=== PATIENT | male | born 1930 | race African-American/Black ===

== ENCOUNTER 2016-11-20 16:30 | Inpatient (IN) | payer MEDICARE, OTHER ==
[~2016-11-20] VITALS: Ht 167.6 cm; Wt 70.0 kg
--- NOTE | ~2016-11-20 | EKG ---
PATIENT: SANDIE MONTALVO UNIT #: [id number] Ventricular Rate: 122 BPM Atrial Rate: 122 BPM P-R Interval: 144 ms QRS Duration: 68 ms Q-T Interval: 300 ms QTC Calculation(Bezet): 427 ms P [place]: 53 degrees Calculated R [place]: 34 degrees Calculated T [place]: 33 degrees Diagnosis Line: Sinus tachycardia Diagnosis Line: Otherwise normal ECG Diagnosis Line: No previous ECGs available Diagnosis Line: Confirmed by YAMILKA BOYD MD ([id number]) on Diagnosis Line: 11/21/2016 5:02:48 PM INTERPRETING MD: ELIJAH
--- NOTE | ~2016-11-20 | CO ---
Unit #: [id number] #: [id number] Patient: SANDIE MONTALVO [id number] [address] [place], [place] [address] [id number] I MR#: [id number] NAME: SANDIE MONTALVO ROOM: 562 Age: 86 Sex: M Admission Date: 11/20/2016 : 1930 Attending Physician: Lakeisha Martines M.D. Primary Care Physician: Tc Crystal M.D. Consultation Date: 11/21/2016 CONSULTATION REPORT REASON FOR EVAL Anemia and lymphoma, please evaluate. HISTORY OF PRESENT ILLNESS 86-year-old gentleman who is a very good historian. 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 He was treated with chemotherapy followed by radiation therapy followed by maintenance therapy until about a few weeks ago when he was found to have a lung mass and possible kidney mass. He underwent biopsy of the lung mass and pathology is pending. He was supposed to go and see Dr. Alberto Hdz in the [facility] but presented to this hospital with symptomatic severe anemia. He is being transfused and has his and brother in the room with him. Today, he states that he is feeling overall much improved since coming in the hospital. PAST HISTORY Very complex, well documented. Mainly history of lymphoma, treated with chemoradiation therapy. All those records are not available to use. FAMILY HISTORY Negative for cluster of lymphomas. SOCIAL HISTORY Patient is , retired. Nonsmoker, no alcohol usage. ALLERGIES He is allergic to Cipro and amoxicillin. CHRONIC MEDICATIONS Include: 1. Rocephin. 2. Motrin. 3. IV fluids. 4. Tylenol. REVIEW OF SYSTEMS Mainly remarkable for generalized weakness. Decreased appetite for the last couple of days. No chest pain, no increasing shortness of breath. Otherwise, six or eight systems were within normal limits. PHYSICAL EXAMINATION GENERAL: On exam, he looks stated age, very awake, alert, oriented. Very pleasant. No palpable nodes. LUNGS: Crackles. No rales. Unit #: [id number] #: [id number] Patient: SANDIE MONTALVO CARDIOVASCULAR: Distant S1, S2. ABDOMEN: No organomegaly. [employer] SAL[employer] REPRESENTATIVE: Grossly intact. RECTAL: Not done. DIAGNOSTIC STUDIES LABORATORY: CBC - hemoglobin 6, hematocrit 17.8, white count 12.7, platelets 392,000. Sodium 137, potassium 3.9, chloride 108, CO2 21, glucose 96, BUN 15, creatinine 0.8. IMAGING: CT scan of the chest was reviewed and it does show right lower lobe mass lesion with multiple liver metastases and possible lung metastases. IMPRESSION This is an 86-year-old gentleman with a new diagnosis of right lower lobe mass lesion with evidence of liver metastases, had biopsy done in [facility] two days ago and the result is pending. Currently, presents with symptomatic anemia. PLAN We agree with packed RBC and aggressive support. The patient and the family desire to go back to the [facility] as soon as possible. So, upon discharge, he will be going back to Dr. Hdz in the [facility]. Thank you for allowing us to participate in his care. Dictated by... Adán Cisse/bill TD: 11/21/2016 13:18 JOB #: [id number] CONSULTATION REPORT Page 1 of 1 X Hugo Niño MD X CONSULTATION REPORT
--- NOTE | ~2016-11-20 | DS ---
Unit #: [id number] #: [id number] Patient: SANDIE MONTALVO [id number] [address] [address] [id number] I MR#: [id number] NAME: SANDIE MONTALVO ROOM: 562 Age: 86 Sex: M Admission Date: 11/20/2016 : 1930 Discharge Date: Attending Physician: Junior Woods M.D. Primary Care Physician: No Primary Care Physician DISCHARGE SUMMARY DISCHARGE DIAGNOSES 1. Septic shock present on admission. 2. Sepsis. 3. Fever, etiology unclear, likely from his lymphoma, no source of infection. 4. Anemia, likely from his non-Hodgkin's lymphoma. 5. History of ulcerative colitis. 6. Prostate cancer. 7. Recent history of right lung biopsy two days ago. Patient is following [facility] Oncologist. 8. Hypercalcemia. 9. Metabolic acidosis. 10. Hypophosphatemia. 11. Severe protein malnutrition. 12. Transaminitis. CONSULTATION Dr. Niño. PROCEDURE None. DIAGNOSTIC STUDIES LABORATORY: Sodium 138, potassium 4, creatinine 0.7. AST 127, ALT 42, alkaline phosphatase 287. Albumin 1.7. WBC 13.8, hemoglobin 8, platelets 419,000. Blood cultures negative. Urinalysis shows no infection. Influenza A and B negative. IMAGING: CT of the chest without contrast shows irregular spiculated mass right lower lobe, probable right hilar adenopathy concerning for metastatic disease to the sternum and T10 vertebral body also, probable extensive metastatic disease throughout the liver present. Also, several bilateral pulmonary nodules present due to metastatic disease. Small right pleural effusion present. ALLERGIES Ciprofloxacin and amoxicillin. DISCHARGE MEDICATIONS 1. Albuterol two puffs inhalation q.6. 2. Flomax 0.4 p.o. daily. 3. Omeprazole 40 mg p.o. daily. HOSPITALIZATION COURSE Unit #: [id number] #: [id number] Patient: SANDIE MONTALVO An 86 year old admitted because of generalized weakness. When he came in, patient found to have fever and low blood pressures. Patient was diagnosed with septic shock and sepsis and broad-spectrum antibiotics including IV vancomycin and cefepime has been started, but patient does not have any signs of infection. His urinalysis is negative. Chest x-ray negative. No open wounds. No diarrhea. Blood cultures negative. He does have fever x2 only. According to Dr. Niño (oncologist), the fever might be from his lymphoma. Because we could not find any signs of infection, I am going to discontinue the antibiotics and tell him to continue following with his PCP. History of non-Hodgkin's lymphoma: Currently with lung nodule and severe metastatic disease. Patient does not want our oncologist to treat him. He wants to follow Dr. Hdz at [facility]. History of ulcerative colitis: Continue with omeprazole. DISPOSITION Discharge home. FOLLOWUP 1. Follow with his oncologist in one week time for Hodgkin's lymphoma and the lung nodules, likely metastatic disease. 2. Follow with PCP in one week time. 3. Patient will have home health. Dictated by... Adán Johnson TD: 11/23/2016 15:01 JOB #: [id number] DISCHARGE SUMMARY Page 1 of 1 X Lakeisha Martines MD X DISCHARGE SUMMARY
--- NOTE | ~2016-11-20 | CR72 ---
[facility] A Service of [facility] & [facility] RADIOLOGY TEXT RESULTS PATIENT: SADNIE MONTALVO LOCATION: [facility] 562-01 : 31 UNIT #: [id number] AGE: [address]: Lakeisha Martines MD SEX: M ORDER DR: [id number] [facility] [address] [facility]. [place], [place] [address] [id number] I MR#: [id number] Acc #: [id number] NAME: SANDIE MONTALVO : 1930 SEX: M STUDY DATE/TIME: 11/20/2016 17:25 UNIT: [facility] ROOM: [facility] STUDY DESCRIPTION: CR Chest Single View Portable Attending Physician: Lakeisha Martines M.D. Ordering Physician: Ok Haynes M.D. Primary Care Physician: No Primary Care Physician MEDICAL IMAGING REPORT This report is preliminary unless electronic signature is present EXAM Portable chest 11/20/2016. HISTORY 86-year-old male with fever and shortness of air for 3 days. COMPARISON Chest 04/05/2007. FINDINGS Frontal chest demonstrates clear lungs. No pleural effusion or pneumothorax. Heart size and mediastinum are normal. Pulmonary vasculature unremarkable. Right-sided Port-A-Cath. IMPRESSION No acute cardiopulmonary findings. Dictated by... Jeremie Vaz M.D. THIS IS AN ELECTRONICALLY VERIFIED REPORT Jeremie Vaz M.D. at 11/21/2016 10:43 AM GIUSEPPE/mak TD: 11/21/2016 09:42 JOB #: [id number] MEDICAL IMAGING REPORT Page 1 of 1 COPY
--- NOTE | ~2016-11-20 | HP ---
Unit #: [id number] #: [id number] Patient: SANDIE MONTALVO [id number] [address] [address] [id number] I MR#: [id number] NAME: SANDIE MONTALVO ROOM: 562 Age: 86 Sex: M Admission Date: 11/20/2016 : 1930 Attending Physician: Elizabeth Crystal M.D. Primary Care Physician: No Primary Care Physician HISTORY AND PHYSICAL REVISED REPORT CHIEF COMPLAINT Weakness. HISTORY OF PRESENT ILLNESS The patient is an 86-year-old male with a history of an ulcerative colitis and prostate cancer and then non-Hodgkin's lymphoma, status post chemo and radiation, presented to the emergency department complaining of the weakness. The patient was diagnosed with spots on the lungs and the kidneys and underwent a biopsy of the lung biopsy last week on Monday. The patient stated the patient was having no energy, associated fever of 101.2 and no appetite. The patient follows with oncology with Dr. Horta at [facility] and was scheduled to follow up with him tomorrow for the treatment plan. The patient stated that the patient had shortness of breath and has a remote history of smoking and quite smoking 25 years ago. Denies any chest pain. Denies any nausea and vomiting. PAST MEDICAL HISTORY History of ulcerative colitis, prostate cancer, non-Hodgkin's lymphoma. PAST SURGICAL HISTORY History of a prostate seed implant. HOME MEDICATIONS Patient is on omeprazole and iron. ALLERGIES Patient is allergic to Cipro and amoxicillin that causes rash. FAMILY HISTORY No history of cancer in the family. REVIEW OF SYMPTOMS The patient complains of feeling weak. No energy. Loss of appetite. Denies any shortness of breath. Denies any chest pain. Denies any nausea and vomiting. All other systems have been reviewed and are none. PHYSICAL EXAMINATION GENERAL: The patient is lying on the bed, not in acute distress. VITAL SIGNS: Temperature 101.2, pulse 132, respirations 16, blood pressure 116/70, satting 99% on room air. HEENT: Head atraumatic and normocephalic. Pupils equal, round, reactive Unit #: [id number] #: [id number] Patient: SANDIE MONTALVO to light and accommodation. Extraocular movements are intact. Positive for pallor. Positive for dry mucous membrane. NECK: Supple. LUNGS: Decreased air entry at the basis, status post lung biopsy Monday. ABDOMEN: Soft, distended, positive bowel sounds, no tenderness. EXTREMITIES: Positive for edema. No cyanosis. No clubbing. NEUROLOGIC: Alert, awake and oriented. No gross focal motor deficit. DIAGNOSTIC STUDIES LABORATORY DATA: Troponin less than 0.05, INR 1.3. Sodium 136, potassium 4.3, chloride 103, bicarb 23, glucose 123, BUN 17, creatinine 0.9, AST 165, ALT 53, alk phos 353, total bilirubin 1.6. Lipase 27, amylase 47, magnesium is 2, albumin 2.3, phosphorus 1.9. Lactic acid is 3.1. Previously WBC is 15.7, hemoglobin 8.3, hematocrit 25.1, platelets 516. Bands 8%, neutrophils 78%. Influenza A and B is negative. UA shows trace protein. IMAGING STUDIES: Chest x-ray - no acute cardiopulmonary process. CARDIOLOGY STUDIES: EKG shows sinus tachycardia. Otherwise normal EKG. ASSESSMENT 1. Sepsis. 2. Anemia in a compromised patient. 3. Probable mets to the liver/kidney and history of non-Hodgkin's lymphoma. 4. History of right lung biopsy two days ago on Monday. PLAN Plan to admit the patient to the inpatient telemetry and continue with the sepsis protocol and antibiotics with Maxipime 1 gram q12 and oncology consult for probable mets to the lungs. Will check the CT of the chest without contrast, rule out obstructive pneumonia with a hemothorax and repeat the CBC and BMP in the morning and obtain the old records from [facility]. Patient is a full code at this time and further recommendations will follow. Dictated by Adán Vieira TD: 11/21/2016 05:19 JOB #: [id number] HISTORY AND PHYSICAL Page 1 of 1 X ELIZABETH CRYSTAL MD X HISTORY AND PHYSICAL
--- NOTE | ~2016-11-20 | CT57 ---
[facility] A Service of [facility] & [facility] RADIOLOGY TEXT RESULTS PATIENT: SANDIE MONTALVO LOCATION: [facility] 562-01 : 31 UNIT #: [id number] AGE: [address]: Junior Woods MD SEX: M ORDER DR: [id number] [facility] [address] [facility]. [place], [place] [address] [id number] I MR#: [id number] Acc #: [id number] NAME: SANDIE MONTALVO : 1930 SEX: M STUDY DATE/TIME: 11/21/2016 0:13 UNIT: [facility] ROOM: [facility] STUDY DESCRIPTION: CT Chest Wo Cont Attending Physician: Lakeisha Martines M.D. Ordering Physician: Sriram Gibson M.D. Primary Care Physician: No Primary Care Physician MEDICAL IMAGING REPORT This report is preliminary unless electronic signature is present EXAM CT chest without contrast. HISTORY Shortness of air and cough and chest pain for [address] exam was performed with one or more of the following radiation dose reduction techniques: automatic exposure control, adjustment of mA and/or kV according to patient size, and iterative reconstruction. FINDINGS CT chest without contrast demonstrates a lobulated, irregularly marginated mass in the superior segment right lower lobe, measuring 4.7 cm x 6.5 cm in AP and transverse dimensions and 4.8 cm in craniocaudal dimension, concerning for lung carcinoma. Probable right hilar adenopathy. Small right pleural effusion, and mild atelectasis in the posterior lower lobes. Mild nodularity in the anterior left upper lobe, and in the right middle lobe, measuring up to approximately 1 cm. 2.6 cm destructive lesion in the upper sternum, and 1.1 cm lytic lesion in the left margin of the T10 vertebral body. Extensive hypodense hepatic lesions throughout the entire visualized liver. Findings are concerning for hepatic metastatic disease. IMPRESSION 1. Irregularly marginated suspicious mass in the superior segment right lower lobe is characteristic of lung carcinoma. Probable right hilar adenopathy. Findings are also concerning for metastatic disease to the sternum and T10 vertebral body and probable extensive metastatic disease throughout the liver. There are also several small bilateral pulmonary nodules. Although nonspecific, these could be due to metastatic disease as well. 2. Small right pleural effusion. [facility]. [facility] A Service of [facility] RADIOLOGY TEXT RESULTS PATIENT: SANDIE MONTALVO LOCATION: [facility] 562-01 : 31 UNIT #: [id number] AGE: [address]: Junior Woods MD SEX: M ORDER DR: Dictated by... Leroy Lima M.D. THIS IS AN ELECTRONICALLY VERIFIED REPORT Leroy Lima M.D. at 11/21/2016 10:31 PM DFL/mak TD: 11/21/2016 12:25 JOB #: [id number] MEDICAL IMAGING REPORT Page 1 of 1 COPY
[~2016-11-20 16:30] MED LIST: LORTAB 5/500 TA1 TA1 PO
[2016-11-20 17:48] LABS: POC - CKMB 2.7 ng/mL (0.0-7.9); POC - TROPONIN <0.05 ng/mL (<=0.05)
[2016-11-20 18:11] LABS: BASOPHIL% 0.3 % (0-2.5); EOSINOPHIL% 0.2 % (0.0-7.0); HEMATOCRIT 25.1 % (38.0-50.0); HEMOGLOBIN 8.3 gm/dL (13.0-16.0); LYMPHOCYTE# 0.3 X10e3 (1.0-3.5); LYMPHOCYTE% 2.2 % (17.0-45.0); MEAN CELL VOLUME 81.5 FL (83-96); MEAN CORPUSCULAR HGB CONC 33.1 g/dL (30-36); MEAN PLATELET VOLUME 7.2 FL (6.5-11.5); MONOCYTE# 1.7 X10e3 (0-1.0); MONOCYTE% 10.5 % (3.0-12.0); NEUTROPHIL# 13.6 X10e3 (1.5-7.1); NEUTROPHIL% 86.8 % (40-75); PLATELET COUNT 516 X10e3 (140-420); RED BLOOD COUNT 3.08 X10e (3.90-5.60); RED CELL DISTRIBUTION WIDTH 21.2 % (11.0-15.5); WHITE BLOOD COUNT 15.7 X10e3 (4.0-10.5)
[2016-11-20 18:13] LABS: DIFF IND YES
[2016-11-20 18:19] LABS: INR 1.3; PARTIAL THROMBOPLASTIN TIME 26.4 SECONDS (23.5-31.3); PROTHROMBIN TIME (PATIENT) 13.6 SECONDS (10.0-11.7)
[2016-11-20 18:25] LABS: ALBUMIN SERUM 2.3 g/dL (3.5-5.0); BILIRUBIN, DIRECT 0.8 mg/dL (0.0-0.2); BILIRUBIN,INDIRECT 0.8 mg/dL (0.0-0.9); BILIRUBIN,TOTAL 1.6 mg/dL (0.2-2.0); BUN/CREATININE RATIO 18.88; CALCIUM SERUM 8.9 mg/dL (8.4-10.2); CREATININE SERUM 0.9 mg/dL (0.6-1.4); GLOM FILT RATE Estimated 89.9 mL/min (>60); PHOSPHOROUS 1.9 mg/dL (2.5-4.6); POTASSIUM 4.3 mmol/L (3.5-5.1); PROTEIN TOTAL SERUM 6.2 g/dL (6.0-8.3)
[2016-11-20 18:35] LABS: PLATELET ESTIMATE INCREASED (NORMAL); POLYCHROMASIA MOD; TARGET CELLS SL
[2016-11-20 18:36] LABS: POIKILOCYTOSIS MOD
[2016-11-20 19:49] LABS: INFLUENZA A NEG (NEG); INFLUENZA B NEG (NEG)
[2016-11-20 20:08] LABS: URINE SOURCE CLEAN CATCH
[2016-11-20 20:14] LABS: URINE APPEARANCE CLEAR; URINE BILIRUBIN NEG (NEG); URINE BLOOD NEG (NEG); URINE COLOR DK YELLOW; URINE GLUCOSE NEG (NEG); URINE KETONE NEG (NEG); URINE LEUKOCYTE ESTERASE NEG (NEG); URINE NITRATE NEG (NEG); URINE PROTEIN TRACE (NEG); URINE SPECIFIC GRAVITY 1.013 (1.003-1.035)
[2016-11-20 20:18] LABS: CULTURE INDICATED? NO
[2016-11-21 07:34] LABS: BASOPHIL% 0.3 % (0-2.5); EOSINOPHIL# 0.1 X10e3 (0-0.7); EOSINOPHIL% 0.4 % (0.0-7.0); HEMATOCRIT 17.8 % (38.0-50.0); LYMPHOCYTE# 0.5 X10e3 (1.0-3.5); LYMPHOCYTE% 4.2 % (17.0-45.0); MEAN CELL VOLUME 81.3 FL (83-96); MEAN CORPUSCULAR HEMOGLOBIN 27.2 PG (28-34); MEAN CORPUSCULAR HGB CONC 33.5 g/dL (30-36); MEAN PLATELET VOLUME 7.2 FL (6.5-11.5); MONOCYTE# 1.3 X10e3 (0-1.0); MONOCYTE% 10.6 % (3.0-12.0); NEUTROPHIL# 10.7 X10e3 (1.5-7.1); NEUTROPHIL% 84.5 % (40-75); PLATELET COUNT 392 X10e3 (140-420); RED BLOOD COUNT 2.19 X10e (3.90-5.60); RED CELL DISTRIBUTION WIDTH 21.7 % (11.0-15.5); WHITE BLOOD COUNT 12.7 X10e3 (4.0-10.5)
[2016-11-21 07:49] LABS: BUN/CREATININE RATIO 18.75; CALCIUM SERUM 7.9 mg/dL (8.4-10.2); CREATININE SERUM 0.8 mg/dL (0.6-1.4); GLOM FILT RATE Estimated 94.4 mL/min (>60); POTASSIUM 3.9 mmol/L (3.5-5.1)
[2016-11-21 07:53] LABS: DIFF IND YES
[2016-11-21 08:52] LABS: ANISOCYTOSIS MOD; PLATELET ESTIMATE NORMAL (NORMAL)
[2016-11-21 08:53] LABS: MICROCYTOSIS SL; POIKILOCYTOSIS SL
[2016-11-21 08:54] LABS: HYPOCHROMIA SL
[2016-11-21] MEDS ORDERED: PATIENT'S PHARMACY (11:09)
[2016-11-21] MEDS ORDERED: PROTONIX PO (11:09)
[2016-11-21] MEDS ORDERED: OMEPRAZOLE40 M1 PO (11:09)
[2016-11-21] MEDS ORDERED: ALBUTEROL17 GM INH (11:11)
[2016-11-21] MEDS ORDERED: FLOMAX0.4 M1 PO (11:11)
[2016-11-21 19:15] LABS: BASOPHIL# 0.1 X10e3 (0-0.3); BASOPHIL% 0.4 % (0-2.5); DIFF IND NO; EOSINOPHIL# 0.2 X10e3 (0-0.7); EOSINOPHIL% 1.4 % (0.0-7.0); HEMATOCRIT 24.7 % (38.0-50.0); HEMOGLOBIN 8.1 gm/dL (13.0-16.0); LYMPHOCYTE# 0.7 X10e3 (1.0-3.5); LYMPHOCYTE% 5.6 % (17.0-45.0); MEAN CELL VOLUME 83.9 FL (83-96); MEAN CORPUSCULAR HEMOGLOBIN 27.5 PG (28-34); MEAN CORPUSCULAR HGB CONC 32.8 g/dL (30-36); MEAN PLATELET VOLUME 6.8 FL (6.5-11.5); MONOCYTE# 1.5 X10e3 (0-1.0); MONOCYTE% 11.8 % (3.0-12.0); NEUTROPHIL# 10.4 X10e3 (1.5-7.1); NEUTROPHIL% 80.8 % (40-75); PLATELET COUNT 393 X10e3 (140-420); RED BLOOD COUNT 2.94 X10e (3.90-5.60); RED CELL DISTRIBUTION WIDTH 19.9 % (11.0-15.5); WHITE BLOOD COUNT 12.8 X10e3 (4.0-10.5)
[2016-11-22 05:15] LABS: HEMATOCRIT 26.6 % (38.0-50.0); HEMOGLOBIN 8.9 gm/dL (13.0-16.0); MEAN CELL VOLUME 84.4 FL (83-96); MEAN CORPUSCULAR HEMOGLOBIN 28.1 PG (28-34); MEAN CORPUSCULAR HGB CONC 33.3 g/dL (30-36); MEAN PLATELET VOLUME 7.3 FL (6.5-11.5); RED BLOOD COUNT 3.16 X10e (3.90-5.60); RED CELL DISTRIBUTION WIDTH 20.4 % (11.0-15.5); WHITE BLOOD COUNT 13.8 X10e3 (4.0-10.5)
[2016-11-22 06:05] LABS: ALBUMIN SERUM 1.8 g/dL (3.5-5.0); BILIRUBIN,TOTAL 2.2 mg/dL (0.2-2.0); CALCIUM SERUM 8.4 mg/dL (8.4-10.2); CREATININE SERUM 0.7 mg/dL (0.6-1.4); GLOM FILT RATE Estimated 99.8 mL/min (>60); MAGNESIUM 1.8 mg/dL (1.6-3.0); PHOSPHOROUS 1.7 mg/dL (2.5-4.6); POTASSIUM 4.6 mmol/L (3.5-5.1); PROTEIN TOTAL SERUM 5.1 g/dL (6.0-8.3)
[2016-11-23 07:16] LABS: HEMATOCRIT 24.5 % (38.0-50.0); MEAN CELL VOLUME 83.2 FL (83-96); MEAN CORPUSCULAR HEMOGLOBIN 27.1 PG (28-34); MEAN CORPUSCULAR HGB CONC 32.6 g/dL (30-36); MEAN PLATELET VOLUME 7.2 FL (6.5-11.5); RED BLOOD COUNT 2.95 X10e (3.90-5.60); RED CELL DISTRIBUTION WIDTH 21.1 % (11.0-15.5); WHITE BLOOD COUNT 13.8 X10e3 (4.0-10.5)
[2016-11-23 07:48] LABS: ALBUMIN SERUM 1.7 g/dL (3.5-5.0); BILIRUBIN,TOTAL 2.8 mg/dL (0.2-2.0); BUN/CREATININE RATIO 17.14; CALCIUM SERUM 8.3 mg/dL (8.4-10.2); CREATININE SERUM 0.7 mg/dL (0.6-1.4); GLOM FILT RATE Estimated 99.8 mL/min (>60); PROTEIN TOTAL SERUM 4.5 g/dL (6.0-8.3)
== END 2016-11-23 19:21 | disposition home health service (06) | DRG 871 ==
LOC: CED 16:30 → C5B 21:34 → CEDOF 21:34 → CED 22:15 → CEDOF 11-21 01:14 → C5B 11-21 01:14
PROVIDERS: Emergency Medicine; Internal Medicine; Internal Medicine Medical Oncology
PROC: 30233N1 Transfusion of Nonautologous Red Blood Cells into Peripheral Vein, Percutaneous Approach (ICD-10-PCS; principal; 2016-11-21)
DX: A41.9 Sepsis, unspecified organism (principal); R65.21 Severe sepsis with septic shock; E43 Unspecified severe protein-calorie malnutrition; E87.2 Acidosis; D63.0 Anemia in neoplastic disease; C83.11 Mantle cell lymphoma, lymph nodes of head, face, and neck; E87.5 Hyperkalemia; Z85.46 Personal history of malignant neoplasm of prostate; E83.39 Other disorders of phosphorus metabolism; Z88.1 Allergy status to other antibiotic agents; K31.819 Angiodysplasia of stomach and duodenum without bleeding; R74.0 Nonspecific elevation of levels of transaminase and lactic acid dehydrogenase [LDH]
CPT/HCPCS: 36415; 36430; 71010; 71250; 80048; 80053; 80076; 81003; 82150; 82553; 83605; 83690; 83735; 84100; 84484; 85025; 85027; 85610; 85730; 86850; 86900; 86901; 86923; 87040; 87804; 93005; 94640; 94664; 94760; 96361; 96365; 97116; 97161; 97165; 99285; G8987-GO; G8988-GO; G8989-GO; G8990-GP; G8991-GP; J0692; J0696; J1642; J3370; P9016